=== PATIENT | male | born 1950 | race Caucasian/White ===

== ENCOUNTER → 2019-08-16 | Outpatient (CLI) | payer MEDICARE, OTHER ==
[2019-08-16 09:21] LABS: BILIRUBIN,URINE NEGATIVE (NEGATIVE); CLARITY,URINE CLEAR; COLOR,URINE YELLOW; GLUCOSE, URINE (UA) NEGATIVE (NEGATIVE); KETONES,URINE NEGATIVE (NEGATIVE); LEUKOCYTE ESTERASE ,URINE NEGATIVE (NEGATIVE); NITRITE,URINE NEGATIVE (NEGATIVE); PH,URINE 5 (5-9); PROTEIN,URINE 1+ (NEGATIVE); UROBILINOGEN,URINE NORMAL (NORMAL)
[2019-08-16 09:39] LABS: BACTERIA,URINE TRACE /HPF; RBC,URINE RARE /HPF; SQUAMOUS EPITHELIAL CELL,UR 0-2 /HPF; WBC,URINE RARE /HPF
--- NOTE | 2019-08-16 10:38 | Diagnostic Imaging Report ---
PROCEDURE: CT abdomen and pelvis without contrast. TECHNIQUE: Multiple contiguous axial images were obtained through the abdomen and pelvis without the use of intravenous contrast. Auto Exposure Controls were utilized during the CT exam to meet ALARA standards for radiation dose reduction. INDICATION: Right lower quadrant pain. COMPARISON: No prior studies are available for comparison. FINDINGS: The lung bases are clear. The liver and gallbladder are unremarkable. No liver mass is detected. There is no biliary duct dilatation. The pancreas and spleen are unremarkable. No adrenal mass is detected. Both kidneys contain renal sinus cysts. No definite calculi are seen. The aorta is nonaneurysmal. The small and large bowel loops are normal in caliber. No obstruction is seen. Imaging through the pelvis does show the bladder to be diffusely thick walled. There is a probable diverticulum arising from the dome of the bladder in the left para-midline location. The diverticulum shows some wall thickening as well and measures approximately 3.2 x 2.2 cm. The prostate is enlarged. No definite abdominal or pelvic lymphadenopathy is seen. IMPRESSION: 1. Bilateral renal sinus cysts. No definite urinary tract calculi or hydronephrosis is seen. 2. Prostatomegaly. There is some mild bladder wall thickening as well as bladder diverticulum arising from the dome left paramidline location which also shows some thickening. While this could be owing to a cystitis, possibility of chronic bladder outlet obstruction would be an additional consideration. No other significant abnormality is seen. Dictated by: Dictated on workstation # [id number]
== END ==
LOC: RAD 09:07
PROVIDERS: ATTEND Internal Medicine Gastroenterology
DX: N39.8 Other specified disorders of urinary system (principal); N28.1 Cyst of kidney, acquired; R19.8 Other specified symptoms and signs involving the digestive system and abdomen; N40.0 Benign prostatic hyperplasia without lower urinary tract symptoms
CPT/HCPCS: 74176; 81000

== ENCOUNTER → 2020-04-29 | Outpatient (CLI) | payer MEDICARE, OTHER | LOC: LABNPT 06:59 | PROVIDERS: ATTEND Internal Medicine Gastroenterology | DX: Z20.828 Contact with and (suspected) exposure to other viral communicable diseases (principal) | CPT/HCPCS: 87635 ==